=== PATIENT | male | born 1990 | race Hispanic/Latino ===

== ENCOUNTER 2019-02-15 11:08 | Emergency (ER) | payer SELFPAY ==
--- NOTE | 2019-02-15 11:43 | RAD REPORT ---
EXAM DESCRIPTION: Priscilla Thapa (2 Views)02/15/2019 11:36 am CLINICAL HISTORY: Cough COMPARISON: None FINDINGS: The lungs appear clear of acute infiltrate. The heart is normal size IMPRESSION: No acute abnormalities displayed
--- NOTE | 2019-02-15 11:48 | ER ---
Nurse's Notes [facility] Name: Nas Mccullough III Age: 29 yrs Sex: Male : 1990 Arrival Date: 02/15/2019 Time: 11:12 Bed 8 Private MD: None, None Diagnosis: Bronchitis, not specified as acute or chronic;Wheezing Presentation: 02/15 11:13 Presenting complaint: Patient states: congestion, cough is worse "When I drink water it sv makes me cough and my chest rattle." started Wednesday. Was seen at [facility] and sent home with Amoxicillin, Promethazine, Claritin and meds are not helping. Transition of care: patient was not received from another setting of care. Onset of symptoms was February 12, 2019. Care prior to arrival: None. 11:13 Method Of Arrival: Ambulatory sv 11:13 Acuity: LEVI 3 sv 11:45 Risk Assessment: Do you want to hurt yourself or someone else? Patient reports no jl7 desire to harm self or others. Initial Sepsis Screen: Does the patient meet any 2 criteria? No. Patient's initial sepsis screen is negative. Does the patient have a suspected source of infection? No. Patient's initial sepsis screen is negative. Historical: - Allergies: 11:15 No Known Allergies; sv - PMHx: 11:15 None; sv - PSHx: 11:15 arm surgery; sv - Immunization history:: Adult Immunizations unknown. - Social history:: Smoking status: unknown. - Ebola Screening: : No symptoms or risks identified at this time. Screenin:45 Abuse screen: Denies threats or abuse. Denies injuries from another. Nutritional jl7 screening: No deficits noted. Tuberculosis screening: No symptoms or risk factors identified. Fall Risk None identified. Assessment: 11:45 General: Appears in no apparent distress. uncomfortable, Behavior is calm, cooperative, jl7 appropriate for age. Pain: Denies pain. Neuro: Level of Consciousness is awake, alert, obeys commands, Oriented to person, place, time, situation. Cardiovascular: Patient's skin is warm and dry. Respiratory: Airway is patent Respiratory effort is even, unlabored, Respiratory pattern is regular, symmetrical, Breath sounds are clear bilaterally. Derm: Skin is pink, warm \\T\\ dry. Vital Signs: 11:15 BP 122 / 87; Pulse 79; Resp 20; Temp 98(A); Pulse Ox 97% ; Weight 127.01 kg; Height 5 sv ft. 11 in. (180.34 cm); Pain 0/10; 11:15 Body Mass Index 39.05 (127.01 kg, 180.34 cm) ED Course: 11:12 Patient arrived in ED. mr 11:12 None, None is Private Physician. mr 11:12 Ewelina G[facility] F[facility]-C [facility]. snw 11:12 Chaim Sun MD is Attending Physician. snw 11:15 Triage completed. sv 11:17 Arm band placed on. sv 11:34 Geri Bruce RN is Primary Nurse. jl7 11:38 Chest Pa And Lat (2 Views) XRAY In Process Unspecified. EDMS 11:45 Patient has correct armband on for positive identification. Bed in low position. Call jl7 light in reach. Side rails up X 1. Pulse ox on. NIBP on. 12:25 No provider procedures requiring assistance completed. Patient did not have IV access jl7 during this emergency room visit. Administered Medications: 12:02 Drug: Decadron 8 mg Route: PO; jl7 12:25 Follow up: Response: No adverse reaction jl7 12:02 Drug: Albuterol 2.5 mg Route: Inhalation; jl7 12:25 Follow up: Response: No adverse reaction jl7 12:02 Drug: Albuterol 2.5 mg Route: Inhalation; jl7 12:02 Drug: Albuterol 2.5 mg Route: Inhalation; jl7 Outcome: 11:47 Discharge ordered by MD. snw 12:25 Discharged to home ambulatory. jl7 12:25 Condition: stable 12:25 Discharge instructions given to patient, Instructed on discharge instructions, follow up and referral plans. Demonstrated understanding of instructions, follow-up care, medications, Prescriptions given X 3. 12:27 Patient left the ED. jl7 Signatures: Dispatcher [employer] EDMS Mariana Forde, BENJI RN Ewelina Goff FNP-C FNP-Chad Aria Stinson mr Geri Bruce RN RN jl7 Corrections: (The following items were deleted from the chart) 11:18 11:13 Acuity: LEVI 4 [facility]
--- NOTE | 2019-02-15 11:48 | EDPHYS ---
Physician Documentation [facility] Name: Nas Mccullough III Age: 29 yrs Sex: Male : 1990 Arrival Date: 02/15/2019 Time: 11:12 Bed 8 Private MD: None, None ED Physician Chaim Sun HPI: 02/15 11:50 This 29 yrs old Male presents to ER via Ambulatory with complaints of Cough, snw Congestion. 11:50 The patient or guardian reports cough, flu symptoms. Onset: The symptoms/episode snw began/occurred 4 day(s) ago, and became persistent. Severity of symptoms: At their worst the symptoms were moderate. Associated signs and symptoms: Pertinent positives: fever, nausea, rhinorrhea, sore throat, cough, lungs rattling. It is unknown whether or not the patient has had similar symptoms in the past. seen at another ED 3 days ago, + phenergan with codeine, amoxil, and claritin. . Historical: - Allergies: 11:15 No Known Allergies; sv - PMHx: 11:15 None; sv - PSHx: 11:15 arm surgery; sv - Immunization history:: Adult Immunizations unknown. - Social history:: Smoking status: unknown. - Ebola Screening: : No symptoms or risks identified at this time. ROS: 11:50 Constitutional: Negative for fever, chills, and weight loss, Eyes: Negative for injury, snw pain, redness, and discharge, ENT: Negative for injury, pain, and discharge, Neck: Negative for injury, pain, and swelling, Cardiovascular: Negative for chest pain, palpitations, and edema, Abdomen/GI: Negative for abdominal pain, nausea, vomiting, diarrhea, and constipation, Back: Negative for injury and pain, : Negative for injury, bleeding, discharge, and swelling, MS/Extremity: Negative for injury and deformity, Skin: Negative for injury, rash, and discoloration, Neuro: Negative for headache, weakness, numbness, tingling, and seizure. 11:50 Respiratory: Positive for cough, wheezing. Exam: 11:48 Constitutional: This is a well developed, well nourished patient who is awake, alert, snw and in no acute distress. Head/Face: Normocephalic, atraumatic. Eyes: Pupils equal round and reactive to light, extra-ocular motions intact. Lids and lashes normal. Conjunctiva and sclera are non-icteric and not injected. Cornea within normal limits. Periorbital areas with no swelling, redness, or edema. ENT: Nares patent. No nasal discharge, no septal abnormalities noted. Tympanic membranes are normal and external auditory canals are clear. Oropharynx with moderate redness, no swelling, or masses, exudates, or evidence of obstruction, uvula midline. Mucous membranes moist. Neck: Trachea midline, no thyromegaly or masses palpated, and no cervical lymphadenopathy. Supple, full range of motion without nuchal rigidity, or vertebral point tenderness. No Meningismus. Chest/axilla: Normal chest wall appearance and motion. Nontender with no deformity. No lesions are appreciated. Cardiovascular: Regular rate and rhythm with a normal S1 and S2. No gallops, murmurs, or rubs. Normal PMI, no JVD. No pulse deficits. Abdomen/GI: Soft, non-tender, with normal bowel sounds. No distension or tympany. No guarding or rebound. No evidence of tenderness throughout. Back: No spinal tenderness. No costovertebral tenderness. Full range of motion. Skin: Warm, dry with normal turgor. Normal color with no rashes, no lesions, and no evidence of cellulitis. MS/ Extremity: Pulses equal, no cyanosis. Neurovascular intact. Full, normal range of motion. Neuro: Awake and alert, GCS 15, oriented to person, place, time, and situation. Cranial nerves II-XII grossly intact. Motor strength 5/5 in all extremities. Sensory grossly intact. Cerebellar exam normal. Normal gait. Psych: Awake, alert, with orientation to person, place and time. Behavior, mood, and affect are within normal limits. 11:48 Respiratory: the patient does not display signs of respiratory distress, Respirations: shallow respirations, Breath sounds: decreased breath sounds, wheezing: bronchitic cough. Vital Signs: 11:15 BP 122 / 87; Pulse 79; Resp 20; Temp 98(A); Pulse Ox 97% ; Weight 127.01 kg; Height 5 sv ft. 11 in. (180.34 cm); Pain 0/10; 11:15 Body Mass Index 39.05 (127.01 kg, 180.34 cm) sv MDM: 11:47 Patient medically screened. snw 11:50 Data reviewed: vital signs, nurses notes. Data interpreted: Pulse oximetry: on room air snw is 97 %. Interpretation: normal. Counseling: I had a detailed discussion with the patient and/or guardian regarding: the historical points, exam findings, and any diagnostic results supporting the discharge/admit diagnosis. 02/15 11:17 Order name: Flu; Complete Time: 12:02 sv 02/15 11:16 Order name: Chest Pa And Lat (2 Views) XRAY; Complete Time: 11:45 sv Administered Medications: 12:02 Drug: Decadron 8 mg Route: PO; jl7 12:25 Follow up: Response: No adverse reaction jl7 12:02 Drug: Albuterol 2.5 mg Route: Inhalation; jl7 12:25 Follow up: Response: No adverse reaction jl7 12:02 Drug: Albuterol 2.5 mg Route: Inhalation; jl7 12:02 Drug: Albuterol 2.5 mg Route: Inhalation; jl7 Disposition: 14:28 Co-signature as Attending Physician, Chaim Sun MD. rn Disposition: 02/15/19 11:47 Discharged to Home. Impression: Bronchitis, not specified as acute or chronic, Wheezing. - Condition is Stable. - Discharge Instructions: Acute Bronchitis, Adult, Fever, Adult, Hypertension, How to Use an Inhaler, Cool Mist Vaporizer, Rehydration, Adult. - Prescriptions for Albuterol Sulfate 2.5 mg /3 mL (0.083 %) Inhalation Solution for Nebulization - inhale 1 unit by NEBULIZATION route every 8 hours As needed; 1 box. Prednisone 20 mg Oral Tablet - take 2 tablet by ORAL route once daily for 5 days; 10 tablet. Albuterol Sulfate 90 mcg/actuation - inhale 1-2 puff by INHALATION route every 4-6 hours; 1 Inhaler. - Work release form, Medication Reconciliation Form, Thank You Letter, Antibiotic Education, Prescription Opioid Use form. - Follow up: Private Physician; When: 2 - 3 days; Reason: Recheck today's complaints, Continuance of care, Re-evaluation by your physician. Follow up: Emergency Department; When: As needed; Reason: Trouble breathing, Worsening of condition. - Notes: Please continue current medications Signatures: Dispatcher [employer] Mariana Saavedra RN RN Ewelina Garcia, SENIOR PROJECT LEADER/TEAM LEAD-C SENIOR PROJECT LEADER/TEAM LEAD-Csnw Chaim Sun MD MD rn Leal, Jahala, RN RN jl7 Corrections: (The following items were deleted from the chart) 12:27 11:47 02/15/2019 11:47 Discharged to Home. Impression: Bronchitis, not specified as jl7 acute or chronic; Wheezing. Condition is Stable. Forms are Medication Reconciliation Form, Thank You Letter, Antibiotic Education, Prescription Opioid Use. Follow up: Private Physician; When: 2 - 3 days; Reason: Recheck today's complaints, Continuance of care, Re-evaluation by your physician. Follow up: Emergency Department; When: As needed; Reason: Trouble breathing, Worsening of condition. snw
[2019-02-15] MEDS ORDERED: DEXAMETHASONE 4 MG TAB ONE (12:07)
[2019-02-15] MEDS ORDERED: ALBUTEROL 2.5 MG/3 ML NEB SOL ONE (12:11)
[2019-02-15 12:31] VITALS: BP 122/87; TEMP 98; O2SAT 97
== END 2019-02-15 12:27 | disposition home or self-care (01) ==
LOC: ER 11:08
DX: J40 Bronchitis, not specified as acute or chronic (principal); R06.2 Wheezing
CPT/HCPCS: 71046; 87804; 99284

== ENCOUNTER 2019-10-08 08:53 | Emergency (ER) | payer SELFPAY ==
--- OUTSIDE RECORDS SUMMARY | 2019-10-08 08:55 | XMS REPORT ---
:1990 [facility] Address [address] [place] [address] Dr. [address] [place] [id number] Care Team Providers Name Role Phone Unavailable Unavailable Unavailable Problems This patient has no known problems. Allergies, Adverse Reactions, Alerts This patient has no known allergies or adverse reactions. Medications This patient has no known medications.
[2019-10-08] MEDS ORDERED: MECLIZINE HCL 12.5 MG TAB ONE (09:28)
[2019-10-08] MEDS ORDERED: ONDANSETRON 4 MG/2 ML VIAL ONE (09:28)
[2019-10-08] MEDS ORDERED: NA CHLORIDE 0.9% 1,000 ML ONE (09:28)
--- NOTE | 2019-10-08 09:51 | RAD REPORT ---
EXAM DESCRIPTION: CT - Head Brain Wo Cont - 10/08/2019 9:40 am CLINICAL HISTORY: Weakness, dizziness COMPARISON: CT head July 2000 TECHNIQUE: Axial 5 mm thick images of the head were obtained without IV contrast. All CT scans are performed using dose optimization technique as appropriate and may include automated exposure control or mA/KV adjustment according to patient size. FINDINGS: No intracranial hemorrhage, mass, edema or shift of mid-line structures. No acute infarcti on changes seen. No abnormal extra-axial fluid collections. Ventricles are normal. Mastoid air cells and middle ears are clear. Visualized portions of the paranasal sinuses are clear. No globe or orbital content abnormality. No acute bony findings. IMPRESSION: Negative non-contrast CT head examination.
[2019-10-08 09:59] LABS: Absolute Lymphocytes (CBC) 2.3 K/uL (0.7-4.9); Hematocrit 51.5 % (39.6-49.0); MPV 10.1 fL (7.6-11.3); RBC Red Blood Cell Count 5.81 M/uL (4.33-5.43)
[2019-10-08 10:09] LABS: Albumin 4.3 g/dL (3.4-5.0); Bilirubin Direct 0.2 mg/dL (0-0.2); Potassium 4.2 mmol/L (3.5-5.1); Protein, Total 7.9 g/dL (6.4-8.2)
[2019-10-08 10:44] LABS: Blood Morphology Comment NOT SEEN (NOT SEEN); Platelet Estimate ADEQ; Urine White Blood Cell Casts OK
[2019-10-08] MEDS ORDERED: DIAZEPAM 10 MG/2 ML INJ SYRINGE ONE (10:51)
--- NOTE | 2019-10-08 11:42 | ER ---
Nurse's Notes [facility] Name: Nas Mccullough III Age: 29 yrs Sex: Male : 1990 Arrival Date: 10/08/2019 Time: 08:56 Bed 14 Private MD: Diagnosis: Benign paroxysmal vertigo Presentation: 10/08 09:06 Presenting complaint: Patient states: feels like he's drunk but hasn't been drinking, iw c/o dizziness since Wednesday, dizziness is making him nauseous, vomiting yesterday , tried OTC motion sickness medicine with no relief. Transition of care: patient was not received from another setting of care. Onset of symptoms was October 06, 2019. Risk Assessment: Do you want to hurt yourself or someone else? Patient reports no desire to harm self or others. Initial Sepsis Screen: Does the patient meet any 2 criteria? No. Patient's initial sepsis screen is negative. Does the patient have a suspected source of infection? No. Patient's initial sepsis screen is negative. Care prior to arrival: None. 09:06 Method Of Arrival: Ambulatory iw 09:06 Acuity: LEVI 3 iw Historical: - Allergies: 09:08 No Known Allergies; iw - Home Meds: 09:08 None [Active]; iw - PMHx: 09:08 None; iw - PSHx: 09:08 arm; iw - Immunization history:: Adult Immunizations not up to date. - Social history:: Smoking status: Patient/guardian denies using tobacco. - Ebola Screening: : Patient negative for fever greater than or equal to 101.5 degrees Fahrenheit, and additional compatible Ebola Virus Disease symptoms Patient denies exposure to infectious person Patient denies travel to an Ebola-affected area in the 21 days before illness onset No symptoms or risks identified at this time. Screenin:00 Abuse screen: Denies threats or abuse. Denies injuries from another. Nutritional ph screening: No deficits noted. Tuberculosis screening: No symptoms or risk factors identified. Fall Risk None identified. Assessment: 09:30 General: Appears in no apparent distress. uncomfortable, well groomed, well developed, ph Behavior is calm, cooperative, appropriate for age, Denies fever. Pain: Denies pain. Neuro: Level of Consciousness is awake, alert, obeys commands, Oriented to person, place, time, situation, Reports dizziness, Denies blurred vision photophobia. Cardiovascular: Reports lightheadedness, nausea, vomiting, Denies chest pain, palpitations, shortness of breath, Capillary refill < 3 seconds in bilateral fingers Patient's skin is warm and dry. Respiratory: Airway is patent Respiratory effort is even, unlabored, Respiratory pattern is regular, symmetrical. GI: Bowel sounds present X 4 quads. Abd is soft and non tender X 4 quads. Reports nausea, vomiting, Patient currently denies abdominal pain. Derm: Skin is intact, is healthy with good turgor, Skin is pink, warm \T\ dry. Musculoskeletal: Circulation, motion, and sensation intact. Range of motion: intact in all extremities. 10:39 Reassessment: Patient appears in no apparent distress at this time. Patient and/or ph family updated on plan of care and expected duration. Pain level reassessed. Patient is alert, oriented x 3, equal unlabored respirations, skin warm/dry/pink. Pt reports some improvement of dizziness after PO Meclizine, also reports that nausea has improved, awaiting reassessment by ERP, SO at bedside. 11:45 Reassessment: Patient appears in no apparent distress at this time. Patient and/or ph family updated on plan of care and expected duration. Pain level reassessed. Patient is alert, oriented x 3, equal unlabored respirations, skin warm/dry/pink. Vital Signs: 09:08 BP 121 / 74; Pulse 79; Resp 16; Temp 97.9(O); Pulse Ox 97% on R/A; Weight 127.01 kg; iw Height 5 ft. 11 in. (180.34 cm); 10:01 BP 123 / 78; Pulse 77; Resp 18; Pulse Ox 95% on R/A; ph 10:40 BP 119 / 56; Pulse 69; Resp 18; Pulse Ox 95% on R/A; ph 11:35 BP 117 / 60; Pulse 71; Resp 18; Temp 98.0; Pulse Ox 100% on R/A; ph 09:08 Body Mass Index 39.05 (127.01 kg, 180.34 cm) iw ED Course: 08:56 Patient arrived in ED. mr 09:05 Tk Patino NP is PHCP. pm1 09:05 Alexx Davis MD is Attending Physician. pm1 09:08 Triage completed. iw 09:08 Arm band placed on. iw 09:11 Lisa Garcia, RN is Primary Nurse. ph 09:40 CT completed. Patient tolerated procedure well. Patient moved back from CT. mw3 09:41 CT Head Brain wo Cont In Process Unspecified. EDMS 09:42 Initial lab(s) drawn, by me, sent to lab. Missed attempt(s): 22 gauge in right hand. jd2 Bleeding controlled, band aid applied, catheter tip intact. 09:58 Inserted saline lock: 22 gauge in right antecubital area, using aseptic technique. ph 10:01 Patient has correct armband on for positive identification. Bed in low position. Call ph light in reach. Side rails up X 1. Pulse ox on. NIBP on. Door closed. Noise minimized. Warm blanket given. 12:21 No provider procedures requiring assistance completed. IV discontinued, intact, iw bleeding controlled, No redness/swelling at site. Pressure dressing applied. Administered Medications: 09:57 Drug: NS 0.9% 1000 ml Route: IV; Rate: 1000 ml; Site: right antecubital; ph 11:30 Follow up: Response: No adverse reaction; IV Status: Completed infusion; IV Intake: ph 1000ml 09:57 Drug: Zofran 4 mg Route: IVP; Site: right antecubital; ph 10:30 Follow up: Response: No adverse reaction; Nausea is decreased ph 09:58 Drug: Meclizine 50 mg Route: PO; ph 10:30 Follow up: Response: No adverse reaction ph 11:09 Drug: Valium 5 mg Route: IVP; Site: right antecubital; ph 11:30 Follow up: Response: No adverse reaction ph Intake: 11:30 IV: 1000ml; Total: 1000ml. ph Outcome: 11:41 Discharge ordered by MD. pm1 12:21 Discharged to home ambulatory, with family. iw 12:21 Condition: good 12:21 Discharge instructions given to patient, family, Instructed on discharge instructions, follow up and referral plans. medication usage, Demonstrated understanding of instructions, follow-up care, medications, Prescriptions given X 3. 12:21 Patient left the ED. iw Signatures: Dispatcher [employer] [facility] Aria Stinson Irene, BENJI LEBLANC Lisa Garcia RN RN ph Tk Patino, [employer]IN[employer] SYSTEMS PROGRAMMER [employer] PROGRAMMER pm1 Fernanda Beebe jd2 Pari Jimenez mw3
--- NOTE | 2019-10-08 11:42 | EDPHYS ---
Physician Documentation [facility] Name: Nas Mccullough III Age: 29 yrs Sex: Male : 1990 Arrival Date: 10/08/2019 Time: 08:56 Bed 14 Private MD: ED Physician Alexx Davis HPI: 10/08 10:57 This 29 yrs old Male presents to ER via Ambulatory with complaints of pm1 Dizziness and Vomiting. 10:57 The patient presents with sense of spinning. Onset: The symptoms/episode began/occurred pm1 3 day(s) ago. Context: just prior to the episode the patient experienced no apparent symptoms, Turning his head to the right causes him to had the sensation of rolling like a log on the right side. Modifying factors: The symptoms are alleviated by closing eyes, holding head still, the symptoms are aggravated by changing position, Movement of head to the right. Associated signs and symptoms: Pertinent positives: when vomiting from the dizziness, he has some abdominal pain, Pertinent negatives: chest pain, shortness of breath. Severity of symptoms: Pain is currently a 0 / 10. The patient has not experienced similar symptoms in the past. It is unknown whether or not the patient has recently seen a physician. Historical: - Allergies: 09:08 No Known Allergies; iw - Home Meds: 09:08 None [Active]; iw - PMHx: 09:08 None; iw - PSHx: 09:08 arm; iw - Immunization history:: Adult Immunizations not up to date. - Social history:: Smoking status: Patient/guardian denies using tobacco. - Ebola Screening: : Patient negative for fever greater than or equal to 101.5 degrees Fahrenheit, and additional compatible Ebola Virus Disease symptoms Patient denies exposure to infectious person Patient denies travel to an Ebola-affected area in the 21 days before illness onset No symptoms or risks identified at this time. ROS: 10:57 Constitutional: Negative for fever, chills, and weight loss, Eyes: Negative for injury, pm1 pain, redness, and discharge, ENT: Negative for injury, pain, and discharge, Neck: Negative for injury, pain, and swelling, Cardiovascular: Negative for chest pain, palpitations, and edema, Respiratory: Negative for shortness of breath, cough, wheezing, and pleuritic chest pain. 10:57 Back: Negative for injury and pain, : Negative for injury, bleeding, discharge, and swelling, MS/Extremity: Negative for injury and deformity, Skin: Negative for injury, rash, and discoloration. 10:57 Abdomen/GI: Positive for abdominal pain, nausea and vomiting, Negative for diarrhea, constipation. 10:57 Neuro: Positive for dizziness, Negative for altered mental status, headache, numbness, syncope, weakness. Exam: 10:57 Constitutional: This is a well developed, well nourished patient who is awake, alert, pm1 and in no acute distress. Head/Face: Normocephalic, atraumatic. Eyes: Pupils equal round and reactive to light, extra-ocular motions intact. Lids and lashes normal. Conjunctiva and sclera are non-icteric and not injected. Cornea within normal limits. Periorbital areas with no swelling, redness, or edema. ENT: Nares patent. No nasal discharge, no septal abnormalities noted. Tympanic membranes are normal and external auditory canals are clear. Oropharynx with no redness, swelling, or masses, exudates, or evidence of obstruction, uvula midline. Mucous membranes moist. Neck: Trachea midline, no thyromegaly or masses palpated, and no cervical lymphadenopathy. Supple, full range of motion without nuchal rigidity, or vertebral point tenderness. No Meningismus. Chest/axilla: Normal chest wall appearance and motion. Nontender with no deformity. No lesions are appreciated. Cardiovascular: Regular rate and rhythm with a normal S1 and S2. No gallops, murmurs, or rubs. Normal PMI, no JVD. No pulse deficits. Respiratory: Lungs have equal breath sounds bilaterally, clear to auscultation and percussion. No rales, rhonchi or wheezes noted. No increased work of breathing, no retractions or nasal flaring. Abdomen/GI: Soft, non-tender, with normal bowel sounds. No distension or tympany. No guarding or rebound. No evidence of tenderness throughout. Back: No spinal tenderness. No costovertebral tenderness. Full range of motion. Skin: Warm, dry with normal turgor. Normal color with no rashes, no lesions, and no evidence of cellulitis. MS/ Extremity: Pulses equal, no cyanosis. Neurovascular intact. Full, normal range of motion. 10:57 Neuro: Orientation: is normal, Mentation: is normal, Cranial nerves: CN II- XII are normal as tested, horizontal nystagmus present . Motor: moves all fours, Sensation: is normal, no obvious gross deficits. Vital Signs: 09:08 BP 121 / 74; Pulse 79; Resp 16; Temp 97.9(O); Pulse Ox 97% on R/A; Weight 127.01 kg; iw Height 5 ft. 11 in. (180.34 cm); 10:01 BP 123 / 78; Pulse 77; Resp 18; Pulse Ox 95% on R/A; ph 10:40 BP 119 / 56; Pulse 69; Resp 18; Pulse Ox 95% on R/A; ph 11:35 BP 117 / 60; Pulse 71; Resp 18; Temp 98.0; Pulse Ox 100% on R/A; ph 09:08 Body Mass Index 39.05 (127.01 kg, 180.34 cm) iw MDM: 09:07 Patient medically screened. pm1 11:03 Data reviewed: vital signs. Data interpreted: Pulse oximetry: on room air is 95 %. pm1 Interpretation: normal. 11:41 Counseling: I had a detailed discussion with the patient and/or guardian regarding: the pm1 historical points, exam findings, and any diagnostic results supporting the discharge/admit diagnosis, lab results, radiology results, the need for outpatient follow up, to return to the emergency department if symptoms worsen or persist or if there are any questions or concerns that arise at home. 10/08 09:18 Order name: Basic Metabolic Panel; Complete Time: 10:11 pm1 10/08 09:18 Order name: CBC with Diff; Complete Time: 10:52 pm1 10/08 09:18 Order name: CT Head Brain wo Cont; Complete Time: 10:11 pm1 12 09:18 Order name: Hepatic Function; Complete Time: 10:11 pm1 10/08 09:18 Order name: Lipase; Complete Time: 10:11 pm1 10/08 10:44 Order name: CBC Smear Scan; Complete Time: 10:52 EDMS 10/08 09:18 Order name: IV Saline Lock; Complete Time: 09:57 pm1 10/08 09:18 Order name: Labs collected and sent; Complete Time: 09:43 pm1 10/08 09:18 Order name: EKG; Complete Time: 09:19 pm1 10/08 09:18 Order name: EKG - Nurse/Tech; Complete Time: 09:58 pm1 Administered Medications: :57 Drug: NS 0.9% 1000 ml Route: IV; Rate: 1000 ml; Site: right antecubital; ph 11:30 Follow up: Response: No adverse reaction; IV Status: Completed infusion; IV Intake: ph 1000ml 09:57 Drug: Zofran 4 mg Route: IVP; Site: right antecubital; ph 10:30 Follow up: Response: No adverse reaction; Nausea is decreased ph 09:58 Drug: Meclizine 50 mg Route: PO; ph 10:30 Follow up: Response: No adverse reaction ph 11:09 Drug: Valium 5 mg Route: IVP; Site: right antecubital; ph 11:30 Follow up: Response: No adverse reaction ph Disposition: 10/09 08:31 Co-signature as Attending Physician, Alexx Davis MD I agree with the assessment and kdr plan of care. Disposition: 10/08/19 11:41 Discharged to Home. Impression: Benign paroxysmal vertigo. - Condition is Stable. - Discharge Instructions: Benign Positional Vertigo. - Prescriptions for Meclizine 25 mg Oral Tablet - take 1 tablet by ORAL route every 8 hours As needed; 30 tablet. Valium 5 mg Oral Tablet - take 1 tablet by ORAL route every 8 hours As needed; 20 tablet. Zofran 4 mg Oral Tablet - take 1 tablet by ORAL route every 8 hours As needed; 20 tablet. - Work release form, Medication Reconciliation Form, Thank You Letter, Antibiotic Education, Prescription Opioid Use form. - Follow up: Emergency Department; When: As needed; Reason: Worsening of condition. Follow up: Private Physician; When: 2 - 3 days; Reason: Recheck today's complaints, Continuance of care, Re-evaluation by your physician. - Problem is new. - Symptoms have improved. Signatures: Dispatcher [employer] EDMS Alexx Davis MD MD [facility] Olesya Rosenberg RN RN iw Lisa Garcia RN RN ph Tk Pat[place], NAVIN [employer] SPECIALIST pm1 Corrections: (The following items were deleted from the chart) 10/08 12:21 11:41 10/08/2019 11:41 Discharged to Home. Impression: Benign paroxysmal vertigo. iw Condition is Stable. Discharge Instructions: Benign Positional Vertigo. Prescriptions for Meclizine 25 mg Oral Tablet - take 1 tablet by ORAL route every 8 hours As needed; 30 tablet, Valium 5 mg Oral Tablet - take 1 tablet by ORAL route every 8 hours As needed; 20 tablet, Zofran 4 mg Oral Tablet - take 1 tablet by ORAL route every 8 hours As needed; 20 tablet. and Forms are Medication Reconciliation Form, Thank You Letter, Antibiotic Education, Prescription Opioid Use. Follow up: Emergency Department; When: As needed; Reason: Worsening of condition. Follow up: Private Physician; When: 2 - 3 days; Reason: Recheck today's complaints, Continuance of care, Re-evaluation by your physician. Problem is new. Symptoms have improved. pm1
[2019-10-08 12:45] VITALS: TEMP 97.9
[2019-10-08 12:46] VITALS: O2SAT 95
[2019-10-08 12:47] VITALS: BP 119/56
--- NOTE | 2019-10-09 08:55 | EKG ---
Test Date: 2019-10-08 Test Time: 09:51:16 Coin Collector: YVONNE MEASUREMENT RESULTS: Intervals: Rate: 72 OK: 146 QRSD: 86 QT: 414 QTc: 453 [place]: P: 34 OK: 146 QRS: 29 T: 37 INTERPRETIVE STATEMENTS: Normal sinus rhythm Normal ECG No previous ECG available for comparison Electronically Signed On 10-09-19 08:54:36 GATE KEEPER by Sukhdev Harding
== END 2019-10-08 12:21 | disposition home or self-care (01) ==
LOC: ER 08:53
DX: H81.10 Benign paroxysmal vertigo, unspecified ear (principal)
CPT/HCPCS: 36415; 70450; 80048; 80076; 83690; 85025; 93005; 96361; 96374; 96375; 99284; J2405; J3360; J7030; J8597